=== PATIENT | female | born 1945 | race Caucasian/White ===

== ENCOUNTER 2021-12-26 08:47 | Emergency (ER) | payer MEDICARE, BC ==
[2021-12-26] MEDS ORDERED: Sodium Chloride 0.9% 10 ML Syringe FLUSH PRN (09:00)
[2021-12-26] MEDS ORDERED: Aspirin 81 MG Tab.Chew PO ONE (09:17)
[2021-12-26 09:34] VITALS: PULSE 86
[2021-12-26 09:42] LABS: PTT,PARTIAL THROMBOPLSTIN TIME 23.2 SEC (20.5-30.9)
[2021-12-26 09:45] LABS: CORONAVIRUS COVID-19 NAA NEGATIVE (NEGATIVE); RESPIRATORY SYNCYTIAL VIR NAA NEGATIVE (NEGATIVE)
[2021-12-26 09:52] LABS: CHLORIDE,CL 105 mmol/L (98-107); SODIUM,NA 138 mmol/L (136-145)
[2021-12-26 09:56] LABS: ANION GAP 10.9 mmol/L (5-15); ESTIMATED GFR 59 mL/min (>=60)
[2021-12-26] MEDS ORDERED: Nitroglycerin 0.4 MG Tab.SL SL ONE (10:07)
[2021-12-26] MEDS ORDERED: Iopamidol 755 Mg/ML 100 ML Bottle IVPUSH ONE (10:08)
[2021-12-26 10:51] VITALS: BP 140/69
[2021-12-26] MEDS ORDERED: HYDROmorphone 0.5 MG/0.5 ML Syringe IVPUSH ONE (11:08)
[2021-12-26] MEDS ORDERED: Heparin Sodium 5,000 Units/ML Vial IVPUSH ONE (11:49)
[2021-12-26] MEDS ORDERED: Ondansetron 4 MG/2 ML SDV IVPUSH ONE (11:55)
[2021-12-26] MEDS ORDERED: Heparin Sodium/0.45% NaCl 25,000 UNITS/500 ML BAG IV SCH (12:00)
[2021-12-26] MEDS ORDERED: Nitroglycerin/D5W 25 MG/250 ML BOTTLE IV SCH (12:30)
== END 2021-12-26 13:12 | disposition short-term general hospital (02) ==
LOC: VM.ED 08:47
DX: I24.9 Acute ischemic heart disease, unspecified (principal); E78.00 Pure hypercholesterolemia, unspecified; I10 Essential (primary) hypertension; E03.9 Hypothyroidism, unspecified; Z88.5 Allergy status to narcotic agent; Z79.899 Other long term (current) drug therapy; Z20.822 Contact with and (suspected) exposure to COVID-19
CPT/HCPCS: 0241U; 36415; 71045; 71275; 80053; 83605; 83735; 83880; 84100; 84484; 85025; 85379; 85610; 85730; 86140; 87040; 93005; 96365; 96368; 96375; 99285; A9270; J1170; J1644; J2405; J3490; Q9967; 93010

== ENCOUNTER 2023-01-25 09:26 | Day surgery (SDC) | payer MEDICARE, BC ==
[~2023-01-25 09:26] MED LIST: Lactated Ringers 1,000 ML IV SCH
[2023-01-25] MEDS ORDERED: Lidocaine 4% 5 ML Amp ONE (10:14)
[2023-01-25] MEDS ORDERED: Propofol 200 MG/20 ML SDV ONE (10:18)
[2023-01-25] MEDS ORDERED: fentaNYL 100 MCG/2 ML SDV ONE (10:18)
[2023-01-25 11:25] VITALS: BP 125/59; PULSE 67
== END 2023-01-25 12:18 | disposition home or self-care (01) ==
LOC: VM.SDS 09:26
PROVIDERS: ATTEND Family Medicine
DX: K29.50 Unspecified chronic gastritis without bleeding (principal); K58.9 Irritable bowel syndrome, unspecified; D50.9 Iron deficiency anemia, unspecified; R63.4 Abnormal weight loss; E78.5 Hyperlipidemia, unspecified; I10 Essential (primary) hypertension; I25.10 Atherosclerotic heart disease of native coronary artery without angina pectoris; E03.9 Hypothyroidism, unspecified; M85.80 Other specified disorders of bone density and structure, unspecified site; F32.A Depression, unspecified; M54.50 Low back pain, unspecified; G89.29 Other chronic pain; H90.3 Sensorineural hearing loss, bilateral; G25.81 Restless legs syndrome; G43.909 Migraine, unspecified, not intractable, without status migrainosus; G47.00 Insomnia, unspecified; M47.12 Other spondylosis with myelopathy, cervical region; Z98.1 Arthrodesis status; Z90.49 Acquired absence of other specified parts of digestive tract; Z95.5 Presence of coronary angioplasty implant and graft; Z98.51 Tubal ligation status; Z90.89 Acquired absence of other organs; Z79.899 Other long term (current) drug therapy; Z79.890 Hormone replacement therapy; Z88.5 Allergy status to narcotic agent; Z79.84 Long term (current) use of oral hypoglycemic drugs; Z68.31 Body mass index [BMI] 31.0-31.9, adult
CPT/HCPCS: 00811; 88305; J2704; J3010; J7120

== ENCOUNTER 2023-11-12 21:01 | Emergency (ER) | payer MEDICARE, BC ==
[2023-11-12] MEDS ORDERED: Sodium Chloride 0.9% 500 ML IV SCH (21:15)
[2023-11-12 21:30] LABS: BASOPHILS PERCENT AUTO 0.2 % (0.2-1.2); EOSINOPHILS ABSOLUTE AUTO 0.2 x10^3/uL (0.0-0.5); EOSINOPHILS PERCENT AUTO 1.8 % (0.0-4.0); HEMOGLOBIN 14.3 g/dL (12.0-16.0); IMMATURE GRAN ABSOLUTE AUTO 0.04 x10^3/uL (0.00-0.07); LYMPHOCYTES ABSOLUTE AUTO 1.2 x10^3/uL (1.0-4.8); LYMPHOCYTES PERCENT AUTO 13.3 % (25.0-50.0); MEAN CORPUSCULAR VOLUME 91.1 fL (78.0-93.0); MONOCYTES ABSOLUTE AUTO 0.6 x10^3/uL (0.0-0.8); MONOCYTES PERCENT AUTO 6.4 % (2.0-11.0); NEUTROPHILS ABSOLUTE AUTO 7.2 x10^3/uL (1.8-7.7); NEUTROPHILS PERCENT AUTO 77.9 % (50.0-80.0); PLATELET COUNT,PLT 191 x10^3/uL (130-400); RED BLOOD CELL COUNT 4.61 x10^6/uL (4.00-5.50); WHITE BLOOD CELL COUNT,WBC 9.3 x10^3/uL (4.0-10.0)
[2023-11-12 21:31] LABS: APPEARANCE,URINE CLEAR (CLEAR); BILIRUBIN,URINE SMALL (NEGATIVE); COLOR,URINE YELLOW (YELLOW); GLUCOSE,URINE NEGATIVE (NEGATIVE); KETONES,URINE NEGATIVE (NEGATIVE); LEUKOCYTE ESTERASE,URINE NEGATIVE (NEGATIVE); NITRITE,URINE NEGATIVE (NEGATIVE); OCCULT BLOOD,URINE NEGATIVE (NEGATIVE); PH,URINE 5.5 (5.0-8.0); PROTEIN,URINE NEGATIVE (NEGATIVE); UROBILINOGEN,URINE 0.2 EU/dL (0.2)
[2023-11-12 21:42] VITALS: BP 141/78; PULSE 84
[2023-11-12 21:48] LABS: A/G RATIO 1.21; ALANINE AMINOTRANSFERASE,ALT 24 U/L (14-59); ALBUMIN 4.1 g/dL (3.4-5.0); ALKALINE PHOSPHATASE 104 U/L (46-116); ASPARTATE AMNIOTRANSFERASE,AST 20 U/L (15-37); BILIRUBIN TOTAL 0.3 mg/dL (0.2-1.0); BLOOD UREA NITROGEN,BUN 27 mg/dL (7-18); CALCIUM 9.8 mg/dL (8.5-10.1); CARBON DIOXIDE,CO2 28 mmol/L (21-32); CHLORIDE,CL 104 mmol/L (98-107); CREATININE 1.3 mg/dL (0.55-1.02); GLUCOSE RANDOM 157 mg/dL (70-99); POTASSIUM,K 4.1 mmol/L (3.5-5.1); PROTEIN TOTAL,TP 7.5 g/dL (6.4-8.2); SODIUM,NA 142 mmol/L (136-145)
[2023-11-12 21:52] LABS: ANION GAP 14.1 mmol/L (5-15); ESTIMATED GFR 43 mL/min (>=60)
[2023-11-12] MEDS: Loperamide 2 MG Cap PO ONE (22:08)
== END 2023-11-12 22:15 | disposition home or self-care (01) ==
LOC: VM.ED 21:01
DX: R19.7 Diarrhea, unspecified (principal); I10 Essential (primary) hypertension; E78.00 Pure hypercholesterolemia, unspecified; Z95.5 Presence of coronary angioplasty implant and graft; I25.10 Atherosclerotic heart disease of native coronary artery without angina pectoris; J45.909 Unspecified asthma, uncomplicated; E03.9 Hypothyroidism, unspecified; Z88.5 Allergy status to narcotic agent; Z79.890 Hormone replacement therapy; Z79.899 Other long term (current) drug therapy; Z79.84 Long term (current) use of oral hypoglycemic drugs; Z79.82 Long term (current) use of aspirin; Z90.49 Acquired absence of other specified parts of digestive tract; Z95.1 Presence of aortocoronary bypass graft
CPT/HCPCS: 36415; 80053; 81003; 85025; 96360; 99284; 99285-25; A9270-GY

== ENCOUNTER 2024-01-09 20:55 | Emergency (ER) | payer MEDICARE, BC ==
[2024-01-09 21:28] VITALS: BP 138/62; PULSE 66
[2024-01-09] MEDS: Lidocaine 1% 10 ML MDV INJECT ONE (22:00)
== END 2024-01-09 22:30 | disposition home or self-care (01) ==
LOC: VM.ED 20:55
DX: S62.521A Displaced fracture of distal phalanx of right thumb, initial encounter for closed fracture (principal); S01.81XA Laceration without foreign body of other part of head, initial encounter; I10 Essential (primary) hypertension; I25.10 Atherosclerotic heart disease of native coronary artery without angina pectoris; E78.00 Pure hypercholesterolemia, unspecified; E03.9 Hypothyroidism, unspecified; E66.9 Obesity, unspecified; Z90.49 Acquired absence of other specified parts of digestive tract; Z95.1 Presence of aortocoronary bypass graft; Z95.5 Presence of coronary angioplasty implant and graft; Z79.899 Other long term (current) drug therapy; Z79.890 Hormone replacement therapy; Z79.82 Long term (current) use of aspirin; Z88.5 Allergy status to narcotic agent; Z68.30 Body mass index [BMI] 30.0-30.9, adult; W01.0XXA Fall on same level from slipping, tripping and stumbling without subsequent striking against object, initial encounter
CPT/HCPCS: 12011; 70450; 72125; 73130-RT; 99284; J3490

== ENCOUNTER 2024-02-14 08:19 | Emergency (ER) | payer MEDICARE, BC ==
[2024-02-14] MEDS: Lactated Ringers 1,000 ML IV ONE (08:40)
[2024-02-14 08:56] LABS: BASOPHILS PERCENT AUTO 0.5 % (0.2-1.2); EOSINOPHILS ABSOLUTE AUTO 0.1 x10^3/uL (0.0-0.5); EOSINOPHILS PERCENT AUTO 1.9 % (0.0-4.0); HEMATOCRIT 42.2 % (33.0-47.0); HEMOGLOBIN 14.2 g/dL (12.0-16.0); IMMATURE GRAN ABSOLUTE AUTO 0.02 x10^3/uL (0.00-0.07); LYMPHOCYTES ABSOLUTE AUTO 0.7 x10^3/uL (1.0-4.8); LYMPHOCYTES PERCENT AUTO 12.5 % (25.0-50.0); MEAN CORPUSCULAR HEMOGLOBIN 30.3 pg (26.0-32.0); MEAN CORPUSCULAR HGB CONC 33.6 g/dL (32.0-36.0); MONOCYTES ABSOLUTE AUTO 0.3 x10^3/uL (0.0-0.8); MONOCYTES PERCENT AUTO 5.6 % (2.0-11.0); NEUTROPHILS ABSOLUTE AUTO 4.7 x10^3/uL (1.8-7.7); NEUTROPHILS PERCENT AUTO 79.2 % (50.0-80.0); PLATELET COUNT,PLT 200 x10^3/uL (130-400); RED BLOOD CELL COUNT 4.69 x10^6/uL (4.00-5.50); WHITE BLOOD CELL COUNT,WBC 5.9 x10^3/uL (4.0-10.0)
[2024-02-14 09:08] LABS: A/G RATIO 1.26; ALANINE AMINOTRANSFERASE,ALT 18 U/L (14-59); ALBUMIN 3.9 g/dL (3.4-5.0); ALKALINE PHOSPHATASE 96 U/L (46-116); ASPARTATE AMNIOTRANSFERASE,AST 15 U/L (15-37); BILIRUBIN TOTAL 0.4 mg/dL (0.2-1.0); BLOOD UREA NITROGEN,BUN 14 mg/dL (7-18); CALCIUM 9.4 mg/dL (8.5-10.1); CARBON DIOXIDE,CO2 27 mmol/L (21-32); CHLORIDE,CL 106 mmol/L (98-107); GLUCOSE RANDOM 118 mg/dL (70-99); LIPASE 27 U/L (19-71); MAGNESIUM 1.9 mg/dL (1.8-2.4); POTASSIUM,K 3.8 mmol/L (3.5-5.1); SODIUM,NA 143 mmol/L (136-145)
[2024-02-14 09:09] LABS: ANION GAP 13.8 mmol/L (5-15); ESTIMATED GFR 58 mL/min (>=60)
[2024-02-14 09:12] VITALS: PULSE 70
[2024-02-14 09:20] LABS: BILIRUBIN,URINE SMALL (NEGATIVE); COLOR,URINE DARK YELLOW (YELLOW); GLUCOSE,URINE NEGATIVE (NEGATIVE); KETONES,URINE 15 mg/dL (NEGATIVE); LEUKOCYTE ESTERASE,URINE SMALL (NEGATIVE); NITRITE,URINE NEGATIVE (NEGATIVE); OCCULT BLOOD,URINE NEGATIVE (NEGATIVE); PROTEIN,URINE NEGATIVE (NEGATIVE); UROBILINOGEN,URINE 0.2 EU/dL (0.2)
[2024-02-14 09:22] LABS: APPEARANCE,URINE SLIGHTLY CLOUDY (CLEAR)
[2024-02-14 09:27] LABS: BACTERIA,URINE OCCASIONAL /HPF (NOT SEEN); MUCUS,URINE FEW /LPF (NOT SEEN); RBC,URINE 0-5 /HPF (NOT SEEN); SQUAMOUS EPITHELIAL CELLS,UR OCCASIONAL /HPF (NOT SEEN)
[2024-02-14] MEDS: Ondansetron 4 MG/2 ML SDV IVPUSH ONE (09:50)
[2024-02-14] MEDS: Iopamidol 612 MG/ML 100 ML Bottle IVPUSH ONE (09:51)
[2024-02-14 12:44] VITALS: BP 136/74
== END 2024-02-14 13:05 | disposition home or self-care (01) ==
LOC: VM.ED 08:19
DX: R10.84 Generalized abdominal pain (principal); R60.9 Edema, unspecified; I10 Essential (primary) hypertension; I25.10 Atherosclerotic heart disease of native coronary artery without angina pectoris; J45.909 Unspecified asthma, uncomplicated; E03.9 Hypothyroidism, unspecified; E66.9 Obesity, unspecified; E78.00 Pure hypercholesterolemia, unspecified; Z95.5 Presence of coronary angioplasty implant and graft; Z79.899 Other long term (current) drug therapy; Z79.84 Long term (current) use of oral hypoglycemic drugs; Z79.82 Long term (current) use of aspirin; Z88.5 Allergy status to narcotic agent
CPT/HCPCS: 74177; 80053; 81001; 83690; 83735; 84484; 85025; 87086; 87088; 87147; 87186; 93005; 93010; 96361; 96374; 99284; 99284-25; J2405; J7120; Q9967

== ENCOUNTER 2024-03-31 09:24 | Emergency (ER) | payer MEDICARE, BC ==
[2024-03-31] MEDS ORDERED: Sodium Chloride 0.9% 10 ML Syringe FLUSH PRN (09:45)
[2024-03-31 10:12] LABS: BASOPHILS PERCENT AUTO 0.2 % (0.2-1.2); EOSINOPHILS ABSOLUTE AUTO 0.1 x10^3/uL (0.0-0.5); EOSINOPHILS PERCENT AUTO 0.8 % (0.0-4.0); HEMOGLOBIN 11.2 g/dL (12.0-16.0); IMMATURE GRAN ABSOLUTE AUTO 0.01 x10^3/uL (0.00-0.07); LYMPHOCYTES PERCENT AUTO 9.7 % (25.0-50.0); MEAN CORPUSCULAR HEMOGLOBIN 29.9 pg (26.0-32.0); MEAN CORPUSCULAR HGB CONC 33.9 g/dL (32.0-36.0); MEAN CORPUSCULAR VOLUME 88.2 fL (78.0-93.0); MONOCYTES ABSOLUTE AUTO 0.5 x10^3/uL (0.0-0.8); MONOCYTES PERCENT AUTO 4.9 % (2.0-11.0); NEUTROPHILS ABSOLUTE AUTO 8.7 x10^3/uL (1.8-7.7); NEUTROPHILS PERCENT AUTO 84.3 % (50.0-80.0); PLATELET COUNT,PLT 224 x10^3/uL (130-400); RED BLOOD CELL COUNT 3.74 x10^6/uL (4.00-5.50); WHITE BLOOD CELL COUNT,WBC 10.3 x10^3/uL (4.0-10.0)
[2024-03-31 10:28] LABS: PROTHROMBIN TIME 10.3 SEC (8.9-11.5); PTT,PARTIAL THROMBOPLSTIN TIME 22.7 SEC (21.9-33.8)
[2024-03-31 10:30] LABS: A/G RATIO 1.1; ALBUMIN 3.4 g/dL (3.4-5.0); BILIRUBIN TOTAL 0.3 mg/dL (0.2-1.0); C-REACTIVE PROTEIN 0.64 mg/dL (<=0.50); CALCIUM 8.9 mg/dL (8.5-10.1); EST CRCL DRUG DOSING (CG) 41.33 mL/min; MAGNESIUM 1.8 mg/dL (1.8-2.4); POTASSIUM,K 3.8 mmol/L (3.5-5.1); PROTEIN TOTAL,TP 6.5 g/dL (6.4-8.2)
[2024-03-31] MEDS: Pantoprazole 40 MG Vial IVPUSH ONE (10:30)
[2024-03-31 10:32] LABS: LACTIC ACID 1.8 mmol/L (0.4-2.0)
[2024-03-31 10:33] LABS: ANION GAP 15.8 mmol/L (5-15)
[2024-03-31] MEDS: Ondansetron 4 MG/2 ML SDV IVPUSH ONE (11:14)
[2024-03-31] MEDS: Lactated Ringers 1,000 ML IV ONE (11:14)
[2024-03-31] MEDS: HYDROmorphone 0.5 MG/0.5 ML Syringe IVPUSH ONE (11:15)
[2024-03-31 12:50] VITALS: PULSE 92
[2024-03-31 13:48] LABS: BASOPHILS PERCENT AUTO 0.1 % (0.2-1.2); EOSINOPHILS ABSOLUTE AUTO 0.1 x10^3/uL (0.0-0.5); EOSINOPHILS PERCENT AUTO 0.5 % (0.0-4.0); IMMATURE GRAN ABSOLUTE AUTO 0.02 x10^3/uL (0.00-0.07); LYMPHOCYTES ABSOLUTE AUTO 1.4 x10^3/uL (1.0-4.8); MEAN CORPUSCULAR HEMOGLOBIN 30.1 pg (26.0-32.0); MEAN CORPUSCULAR HGB CONC 33.3 g/dL (32.0-36.0); MEAN CORPUSCULAR VOLUME 90.4 fL (78.0-93.0); MONOCYTES ABSOLUTE AUTO 0.5 x10^3/uL (0.0-0.8); MONOCYTES PERCENT AUTO 5.1 % (2.0-11.0); NEUTROPHILS ABSOLUTE AUTO 7.8 x10^3/uL (1.8-7.7); NEUTROPHILS PERCENT AUTO 80.1 % (50.0-80.0); PLATELET COUNT,PLT 187 x10^3/uL (130-400); RED BLOOD CELL COUNT 3.32 x10^6/uL (4.00-5.50); WHITE BLOOD CELL COUNT,WBC 9.7 x10^3/uL (4.0-10.0)
[2024-03-31 16:51] VITALS: BP 110/61
== END 2024-03-31 17:05 | disposition short-term general hospital (02) ==
LOC: VM.ED 09:24
DX: K92.2 Gastrointestinal hemorrhage, unspecified (principal); I10 Essential (primary) hypertension; J45.909 Unspecified asthma, uncomplicated; E78.00 Pure hypercholesterolemia, unspecified; E66.9 Obesity, unspecified; E03.9 Hypothyroidism, unspecified; Z79.890 Hormone replacement therapy; Z79.899 Other long term (current) drug therapy; Z90.49 Acquired absence of other specified parts of digestive tract; Z68.31 Body mass index [BMI] 31.0-31.9, adult
CPT/HCPCS: 36415; 80053; 82150; 83605; 83690; 83735; 84484; 85025; 85610; 85730; 86140; 86850; 86900; 86901; 93005; 96361; 96374; 96375; 99285-25; J1171; J2405; J2470; J7120